=== PATIENT | female | born 1990 | race Two or more races ===

== ENCOUNTER 2021-02-28 17:24 | Emergency (ER) | payer OTHER ==
[~2021-02-28] VITALS: Ht 157.5 cm; Wt 57.2 kg
== END 2021-02-28 21:13 | disposition home or self-care (01) ==
LOC: ER 17:24
DX: M54.2 Cervicalgia (principal); M54.89 Other dorsalgia; M25.511 Pain in right shoulder; N80.8 Other endometriosis